=== PATIENT | female | born 1960 | race Caucasian/White ===

== ENCOUNTER → 2017-08-30 | Outpatient (CLI) | payer BC, OTHER | LOC: M ONCR 12:58 | DX: C78.02 Secondary malignant neoplasm of left lung (principal); Z85.3 Personal history of malignant neoplasm of breast | CPT/HCPCS: G0463 ==

== ENCOUNTER 2017-08-31 08:52 | Outpatient (RCR) | payer BC | END 2017-09-14 | LOC: M ONCR 08:52 | DX: C77.1 Secondary and unspecified malignant neoplasm of intrathoracic lymph nodes (principal); C50.911 Malignant neoplasm of unspecified site of right female breast | CPT/HCPCS: 77300 ==

== ENCOUNTER 2017-09-15 11:20 | Outpatient (RCR) | payer BC | END 2017-10-15 | LOC: M ONCR 11:20 | DX: C77.1 Secondary and unspecified malignant neoplasm of intrathoracic lymph nodes (principal); C50.911 Malignant neoplasm of unspecified site of right female breast | CPT/HCPCS: 77336 ==

== ENCOUNTER → 2017-10-27 | Outpatient (CLI) | payer BC | LOC: M ONCR 13:41 | DX: C50.919 Malignant neoplasm of unspecified site of unspecified female breast (principal); C77.1 Secondary and unspecified malignant neoplasm of intrathoracic lymph nodes | CPT/HCPCS: G0463 ==

== ENCOUNTER → 2017-12-22 | Outpatient (CLI) | payer BC | LOC: M ONCR 12:59 | DX: C50.911 Malignant neoplasm of unspecified site of right female breast (principal); C77.1 Secondary and unspecified malignant neoplasm of intrathoracic lymph nodes | CPT/HCPCS: G0463 ==

== ENCOUNTER → 2018-04-20 | Outpatient (CLI) | payer BC ==
--- NOTE | 2018-04-20 13:50 | RADONC ---
RADIATION ONCOLOGY FOLLOWUP NOTE DATE: 04/20/2018 CHART NUMBER: [id number] DIAGNOSIS: Breast cancer. STAGE: IV, metastatic. ECOG PERFORMANCE STATUS: 0 FOLLOWUP NOTE: Ms. Velez is a very pleasant, 57-year-old white female with the diagnosis of metastatic adenocarcinoma of the breast who is presenting to me today for routine followup visit 7 months post completion of palliative radiation therapy to a bronchial mass. The patient presents today reporting that generally she is doing quite well with no complaints at this time related to her radiation therapy or disease. She is having no increased difficulty swallowing or bone pain. REVIEW OF SYSTEMS: The patient's review of systems is noncontributory. Denies nausea, vomiting, fevers, chills, night sweats, diplopia, headaches, anxiety or depression, anorexia, weight loss, visual disturbances, chest pain, urinary or bowel difficulties, bone pain, or neurological problems. PHYSICAL EXAMINATION: The patient is a well-developed, well-nourished, 57-year-old white female, in no acute distress. HEENT exam is normocephalic, atraumatic. Extraocular movements are intact. There is no palpable cervical, supraclavicular, infraclavicular, axillary, or inguinal lymphadenopathy present. Lungs are clear to auscultation and percussion. Heart has a regular rate and rhythm. Abdomen is benign with no hepatosplenomegaly, masses, or tenderness. Skeletal examination reveals no tenderness to pressure or percussion of the bony skeleton. Extremities reveal no clubbing, cyanosis, or edema. Neurologic exam is grossly intact, as is the remainder of the physical examination. ASSESSMENT: The patient is clinically stable at this time. She is continuing with her systemic therapy and a recent CT scan does show an improvement in her multiple lung metastases. There is a questionable new confluent area of opacity in the left perihilar region. This is just at and below the level of our previous radiation field. The other lung metastases appear to be responding to her systemic therapy. In light of her close followup and management with her medical oncologist, I have discharged this patient except on an as needed basis. I let her know that we are available to her at any time if we can be of any assistance whatsoever. The patient has our office number and my cellphone number. Once again, her primary treatment modality is systemic therapy and she is being well managed and in good hands with her present medical oncology team. cc: MD Fercho Aguirre MD Seung Hahn, MD
== END ==
LOC: M ONCR 11:32
PROVIDERS: ATTEND Radiology Radiation Oncology
DX: C50.911 Malignant neoplasm of unspecified site of right female breast (principal); C77.1 Secondary and unspecified malignant neoplasm of intrathoracic lymph nodes